=== PATIENT | male | born 1970 | race Two or more races ===

== ENCOUNTER 2023-08-07 14:55 | Inpatient (IN) | payer MEDICAID, OTHER ==
[~2023-08-07] VITALS: Ht 165.1 cm; Wt 68.5 kg
[2023-08-07] MEDS ORDERED: IV NORMAL SALINE 500 ML BAG IV ONE (15:15)
[2023-08-07 15:53] LABS: BASOPHILS # (AUTO) 0.1 K/UL (0.0-0.2); BASOPHILS % (AUTO) 1.3 % (0.0-2.0); EOSINOPHILS # (AUTO) 0.2 K/uL (0.0-0.7); EOSINOPHILS % (AUTO) 3.5 % (0.0-7.0); HEMATOCRIT 34.9 % (36.7-47.1); HEMOGLOBIN 11.6 g/dL (12.5-16.3); LYMPHOCYTES # (AUTO) 0.8 K/uL (0.8-4.8); LYMPHOCYTES % (AUTO) 14.4 % (20.5-51.5); MEAN CORPUSCULAR HEMOGLOBIN 31.1 uug (23.8-33.4); MEAN CORPUSCULAR HGB CONC 33 g/dL (32.5-36.3); MEAN CORPUSCULAR VOLUME 93.3 fL (73.0-96.2); MONOCYTES # (AUTO) 0.5 K/uL (0.1-1.30); MONOCYTES % (AUTO) 7.7 % (0.0-11.0); NEUTROPHILS # (AUTO) 4.3 K/uL (1.8-8.9); NEUTROPHILS % (AUTO) 73.1 % (38.5-71.5); PLATELET COUNT (AUTO) 128 K/uL (152-348); RED BLOOD CELL COUNT(AUTO) 3.74 MIL/uL (4.06-5.63); RED CELL DISTRIBUTION WIDTH 16.3 % (12.1-16.2); WHITE BLOOD COUNT (AUTO) 5.9 K/uL (3.6-10.2)
[2023-08-07 16:09] LABS: AMMONIA < 10 umol/L (11-32)
[2023-08-07 16:10] LABS: DIFFERENTIAL COMMENT 1
[2023-08-07 16:19] LABS: ALANINE AMINOTRANSFERASE 19 U/L (16-63); ALBUMIN 3.3 g/dL (3.4-5.0); ALKALINE PHOSPHATASE 210 U/L (50-136); ASPARTATE AMINOTRANSFERASE 22 U/L (15-37); BILIRUBIN,DIRECT 0.1 mg/dL (0.0-0.2); BILIRUBIN,TOTAL 0.3 mg/dL (0.2-1.0); CARBON DIOXIDE 22 mmol/L (21-32); CHLORIDE 101 mmol/L (98-107); GLUCOSE 318 mg/dL (74-106); POTASSIUM 3.7 mmol/L (3.5-5.1); SODIUM SERUM 137 mmol/L (136-145); TOTAL PROTEIN, SERUM 7.3 g/dL (6.4-8.2); UREA NITROGEN, BLOOD 60 mg/dL (7-18)
[2023-08-07 16:22] LABS: ETHANOL < 3 MG/DL (0-10)
[2023-08-07 16:26] LABS: CREATININE 8.6 mg/dL (0.6-1.3)
[2023-08-07 16:27] LABS: ACETAMINOPHEN < 2.0 ug/mL (10-30)
[2023-08-07] MEDS ORDERED: ASPIRIN 300 MG RECTAL SUPP RC ONE (17:15)
[2023-08-07] MEDS ORDERED: REMEDY ESSENTIAL ZINC PASTE 113 GM TP PRN (17:45)
[2023-08-07] MEDS ORDERED: ONDANSETRON 4 MG/2 ML VIAL IV PRN (17:45)
[2023-08-07 18:12] LABS: ABG HCO3 18.5 mmol/L; ABG PCO2 33.1 mmHg (35.0-45.0); ABG PH 7.365 (7.350-7.450); ABG PO2 87.9 mmHg (75.0-100.0); ABG SITE RIGHT RADIAL; ABG TOTAL HEMOGLOBIN 12.2 G/dL (13.5-18.0); COHb 0.5 % (0.5-1.5); MetHb 0.2 % (0.0-1.5); O2Hb 95.7 % (94.0-97.0)
[2023-08-07 22:45] VITALS: BP 135/65; TEMP 98; O2SAT 100
[2023-08-08 04:00] VITALS: BP 149/61; TEMP 98; O2SAT 99
[2023-08-08] MEDS: ACETAMINOPHEN 325 MG TABLET PO PRN ×2 (05:04→22:29)
[2023-08-08 05:46] LABS: *BILIRUBIN,URIN NEGATIVE (NEGATIVE); *BLOOD, URINE 1+ (NEGATIVE); *CLARITY,URINE CLEAR (CLEAR); *COLOR,URINE YELLOW (YELLOW); *KETONES,URINE NEGATIVE (NEGATIVE); *UROBILINOGEN,URINE 0.2 E.U./dl (NORMAL); LEUKOCYTE ESTERASE ,URINE TRACE (NEGATIVE); NITRITE, URINE NEGATIVE (NEGATIVE); PH,URINE 5.5 (5.0-8.0)
[2023-08-08 05:51] LABS: *AMPHETAMINE, URINE NEGATIVE (NEGATIVE); *BARBITURATE, URINE NEGATIVE (NEGATIVE); *BENZODIAZEPINE, URINE NEGATIVE (NEGATIVE); *CANNABINOID, URINE NEGATIVE (NEGATIVE); *COCCAINE, URINE NEGATIVE (NEGATIVE); *OPIATE, URINE NEGATIVE (NEGATIVE); *PHENCYCLIDINE SCREEN,URINE NEGATIVE (NEGATIVE); FENTANYL, URINE NEGATIVE (NEGATIVE)
[2023-08-08 05:53] LABS: *PROTEIN,URINE 3+ (NEGATIVE); UGLUCOSE 2+ (NEGATIVE)
[2023-08-08 05:55] LABS: BACTERIA,URINE NONE SEEN /HPF (NONE SEEN); SQUAMOUS EPITHELIAL CELL,UR NONE SEEN /HPF (NONE SEEN)
[2023-08-08 07:10] LABS: BASOPHILS % (AUTO) 0.7 % (0.0-2.0); EOSINOPHILS # (AUTO) 0.2 K/uL (0.0-0.7); EOSINOPHILS % (AUTO) 3.1 % (0.0-7.0); HEMATOCRIT 35.9 % (36.7-47.1); LYMPHOCYTES # (AUTO) 0.9 K/uL (0.8-4.8); LYMPHOCYTES % (AUTO) 14.7 % (20.5-51.5); MEAN CORPUSCULAR HEMOGLOBIN 31.2 uug (23.8-33.4); MEAN CORPUSCULAR HGB CONC 34 g/dL (32.5-36.3); MEAN CORPUSCULAR VOLUME 93.4 fL (73.0-96.2); MONOCYTES # (AUTO) 0.5 K/uL (0.1-1.30); MONOCYTES % (AUTO) 7.6 % (0.0-11.0); NEUTROPHILS # (AUTO) 4.5 K/uL (1.8-8.9); NEUTROPHILS % (AUTO) 73.9 % (38.5-71.5); PLATELET COUNT (AUTO) 129 K/uL (152-348); RED BLOOD CELL COUNT(AUTO) 3.85 MIL/uL (4.06-5.63); RED CELL DISTRIBUTION WIDTH 16.7 % (12.1-16.2); WHITE BLOOD COUNT (AUTO) 6.1 K/uL (3.6-10.2)
[2023-08-08 07:24] LABS: DIFFERENTIAL COMMENT 1
[2023-08-08 07:30] LABS: ALANINE AMINOTRANSFERASE 12 U/L (16-63); ALBUMIN 3.1 g/dL (3.4-5.0); ALKALINE PHOSPHATASE 161 U/L (50-136); ASPARTATE AMINOTRANSFERASE < 5 U/L (15-37); BILIRUBIN,TOTAL 0.3 mg/dL (0.2-1.0); CALCIUM 7.8 mg/dL (8.5-10.1); CARBON DIOXIDE 22 mmol/L (21-32); CHLORIDE 103 mmol/L (98-107); GLUCOSE 168 mg/dL (74-106); PHOSPHOROUS 6.9 mg/dL (2.5-4.9); POTASSIUM 4.6 mmol/L (3.5-5.1); SODIUM SERUM 137 mmol/L (136-145); TOTAL PROTEIN, SERUM 7.3 g/dL (6.4-8.2); UREA NITROGEN, BLOOD 66 mg/dL (7-18)
[2023-08-08 09:05] LABS: CREATININE 9.5 mg/dL (0.6-1.3)
[2023-08-08] MEDS ORDERED: NIFE90TA61 PO (10:07)
[2023-08-08] MEDS ORDERED: FOLI1TAB27 PO (10:07)
[2023-08-08] MEDS ORDERED: LOSA100T3 PO (10:07)
[2023-08-08] MEDS ORDERED: ASPI81TA31 PO (10:07)
[2023-08-08] MEDS ORDERED: CHOL100045 PO (10:07)
[2023-08-08] MEDS ORDERED: GABA600T12 PO (10:07)
[2023-08-08] MEDS ORDERED: ATOR80TA PO (10:07)
[2023-08-08] MEDS ORDERED: FERR325T28 PO (10:07)
[2023-08-08] MEDS ORDERED: TAMS-3 PO (10:07)
[2023-08-08] MEDS ORDERED: DEXTROSE 50% 50 ML DISP.SYRIN IV PRN (11:00)
[2023-08-08] MEDS ORDERED: LACTULOSE 20 G/30 ML LIQUID UDC PO ONE (11:15)
[2023-08-08] MEDS: LOSARTAN POTASSIUM 50 MG TABLET PO SCH (11:49)
[2023-08-08] MEDS: GABAPENTIN 300 MG CAPSULE PO SCH (11:49)
[2023-08-08] MEDS: BLOOD SUGAR DIAGNOSTIC 1 EACH STRIP VI SCH ×3 (11:53→21:40)
[2023-08-08] MEDS: INSULIN REGULAR, HUMAN 300 UNIT/3 ML VIAL SQ PRN ×3 (11:55→21:49)
[2023-08-08 12:00] VITALS: BP 173/79; TEMP 97.9; O2SAT 99
[2023-08-08 16:00] VITALS: BP 193/88; TEMP 98.3; O2SAT 95
[2023-08-08] MEDS ORDERED: hydrALAZINE HCL IV 20 MG in IV NORMAL SALINE 50 ML IV ONE (21:00)
[2023-08-08] MEDS ORDERED: hydrALAZINE HCL 20 MG/1 ML VIAL ONE (21:16)
[2023-08-08] MEDS: DOCUSATE SODIUM 100 MG CAPSULE PO SCH (21:36)
[2023-08-08] MEDS: ATORVASTATIN 40 MG TABLET PO SCH (21:36)
[2023-08-08 23:00] VITALS: BP 175/66; TEMP 98.3; O2SAT 95
[2023-08-09] VITALS (8 sets, daily range): BP systolic 121–197; BP diastolic 61–95; TEMP 98–98.5; O2SAT 95–99
[2023-08-09] MEDS: ACETAMINOPHEN 325 MG TABLET PO PRN ×2 (06:54→13:03)
[2023-08-09] MEDS: BLOOD SUGAR DIAGNOSTIC 1 EACH STRIP VI SCH ×4 (06:57→21:56)
[2023-08-09] MEDS: INSULIN REGULAR, HUMAN 300 UNIT/3 ML VIAL SQ PRN ×3 (07:03→21:50)
[2023-08-09] MEDS: DOCUSATE SODIUM 100 MG CAPSULE PO SCH ×2 (08:29→21:46)
[2023-08-09] MEDS: GABAPENTIN 300 MG CAPSULE PO SCH (08:29)
[2023-08-09] MEDS: CHOLECALCIFEROL 1,000 UNIT TABLET PO SCH (08:29)
[2023-08-09] MEDS: LOSARTAN POTASSIUM 50 MG TABLET PO SCH (08:30)
[2023-08-09] MEDS: AMLODIPINE 10 MG TABLET PO SCH (08:30)
[2023-08-09 10:06] LABS: HEPATITIS B SURFACE AB, QUAL Reactive (.); HEPATITIS B SURFACE AG Negative (Negative)
[2023-08-09] MEDS: ATORVASTATIN 40 MG TABLET PO SCH (21:49)
[2023-08-10 03:18] VITALS: BP 130/72; TEMP 98; O2SAT 98
[2023-08-10 04:00] VITALS: BP 128/88; TEMP 97.6; O2SAT 98
[2023-08-10 08:06] LABS: HEPATITIS B SURFACE AB, QUAL Reactive (.); HEPATITIS B SURFACE AG Negative (Negative)
[2023-08-10] MEDS: BLOOD SUGAR DIAGNOSTIC 1 EACH STRIP VI SCH ×2 (08:16→11:31)
[2023-08-10] MEDS: DOCUSATE SODIUM 100 MG CAPSULE PO SCH (08:16)
[2023-08-10] MEDS: CHOLECALCIFEROL 1,000 UNIT TABLET PO SCH (08:16)
[2023-08-10] MEDS: GABAPENTIN 300 MG CAPSULE PO SCH (08:16)
[2023-08-10] MEDS: LOSARTAN POTASSIUM 50 MG TABLET PO SCH (08:17)
[2023-08-10] MEDS: AMLODIPINE 10 MG TABLET PO SCH (08:17)
[2023-08-10] MEDS: INSULIN REGULAR, HUMAN 300 UNIT/3 ML VIAL SQ PRN ×2 (08:21→11:33)
[2023-08-10] MEDS: ACETAMINOPHEN 325 MG TABLET PO PRN (08:26)
[2023-08-10] MEDS ORDERED: AMLO10TA59 PO (09:59)
[2023-08-10 11:30] VITALS: BP 121/63; TEMP 98.2; O2SAT 98
[2023-08-10 15:58] VITALS: BP 121/63; TEMP 98.2; O2SAT 98
== END 2023-08-10 15:45 | disposition home or self-care (01) | DRG 813 ==
LOC: ER 14:55 → TELE3 22:06 → MEDSURG3 08-08 11:22
PROVIDERS: ADMIT Internal Medicine; ATTEND Nurse Practitioner Acute Care
PROC: 5A1D70Z Performance of Urinary Filtration, Intermittent, Less than 6 Hours Per Day (ICD-10-PCS; principal; 2023-08-08)
DX: T81.89XA Other complications of procedures, not elsewhere classified, initial encounter (principal); G93.41 Metabolic encephalopathy; I21.A1 Myocardial infarction type 2; E44.1 Mild protein-calorie malnutrition; I13.11 Hypertensive heart and chronic kidney disease without heart failure, with stage 5 chronic kidney disease, or end stage renal disease; E88.09 Other disorders of plasma-protein metabolism, not elsewhere classified; D63.1 Anemia in chronic kidney disease; L97.511 Non-pressure chronic ulcer of other part of right foot limited to breakdown of skin; N18.6 End stage renal disease; E11.22 Type 2 diabetes mellitus with diabetic chronic kidney disease; Z99.2 Dependence on renal dialysis; I16.0 Hypertensive urgency; E11.621 Type 2 diabetes mellitus with foot ulcer; E11.42 Type 2 diabetes mellitus with diabetic polyneuropathy; E11.622 Type 2 diabetes mellitus with other skin ulcer; E78.5 Hyperlipidemia, unspecified; R10.12 Left upper quadrant pain; Y84.1 Kidney dialysis as the cause of abnormal reaction of the patient, or of later complication, without mention of misadventure at the time of the procedure; Y73.1 Therapeutic (nonsurgical) and rehabilitative gastroenterology and urology devices associated with adverse incidents; Y92.89 Other specified places as the place of occurrence of the external cause
CPT/HCPCS: 36415; 36600; 70450; 71045; 83605; 83735; 84100; 84443; 84484; 85025; 85730; 86706; 87040; 87340; 90937; 93005; 93307; A4663; A6209; G0378; G0480; J0360; J1815; J7040